=== PATIENT | male | born 1970 | race African-American/Black ===

== ENCOUNTER 2024-09-22 14:09 | Inpatient (IN) | payer OTHER ==
[2024-09-22] MEDS ORDERED: Morphine 4 MG/ML VIAL ONE (14:58)
[2024-09-22 15:48] LABS: #Basophils 0.04 10x3/uL (0.0-0.2); %Basophils 0.6 % (0.0-1.0); %Eosinophils 3.5 % (0.0-10.0); %Lymphocytes 28.8 % (21.0-51.0); %Monocytes 9.6 % (0.0-10.0); %Neutrophils 57.2 % (42.0-75.0); Hematocrit 48.9 % (42.0-52.0); Hemoglobin 16.2 g/dL (14.0-18.0); Mean Corpuscular HGB CONC 33.1 g/dL (32.0-36.0); Mean Corpuscular Volume 90.6 fL (78.0-98.0); Mean Platelet Volume 9.8 fL (7.4-10.4); Platelet Count 421 10x3/uL (130-400); RBC Distribution Width 13.6 % (11.5-14.5)
[2024-09-22] MEDS ORDERED: Ondansetron PF 4 MG/2 ML Vial ONE (16:03)
[2024-09-22 16:10] LABS: Troponin I Less than 0.010 ng/mL (< 0.028)
[2024-09-22 16:19] LABS: ALT (SGPT) 37 U/L (8-55); AST (SGOT) 39 U/L (5-34); Albumin 3.6 g/dL (3.5-5.0); Alkaline Phosphatase 60 U/L (40-110); Anion Gap 16 mmol/L (10-20); BUN (Urea Nitrogen) 48 mg/dL (8.4-25.7); Bilirubin, Total 0.6 mg/dL (0.2-1.2); CK (CPK) 310 U/L (30-200); Calc. Creatinine Clearance 0 mL/min (70-130); Calcium 10.7 mg/dL (7.8-10.44); Carbon Dioxide 32 mmol/L (22-29); Chloride 96 mmol/L (98-107); Estimated GFR 47; Globulin 5.8 g/dL (2.4-3.5); Glucose 109 mg/dL (70-105); Lipase 34 U/L (8-78); Magnesium 2.9 mg/dL (1.6-2.6); Protein, Total 9.4 g/dL (6.0-8.3); Sodium 141 mmol/L (136-145)
[2024-09-22] MEDS ORDERED: Ondansetron PF 4 MG/2 ML Vial IVP PRN (20:15)
[2024-09-22] MEDS ORDERED: Ondansetron ODT 4 MG TAB SL PRN (20:15)
[2024-09-22] MEDS ORDERED: Dextrose 5% in Water 1,000 ML IV PRN (20:49)
[2024-09-22] MEDS ORDERED: Glucagon 1 MG/ML KIT IM PRN (20:49)
[2024-09-22] MEDS ORDERED: Insulin Regular, Human 100 UNIT/ML 10 ML VIAL SC PRN (20:49)
[2024-09-22] MEDS ORDERED: Dextrose 50% Abboject 50 ML SYRINGE SLOW IVP PRN (20:49)
[2024-09-22 22:51] VITALS: BMI 45.1
[2024-09-22] MEDS ORDERED: Albuterol 200 PUFF INH INH PRN (22:51)
[2024-09-23] MEDS: Acetaminophen 325 MG TAB PO PRN (00:21)
[2024-09-23] MEDS: Colchicine 0.6 MG TAB PO SCH ×3 (00:21→11:35)
[2024-09-23] MEDS: Mometasone 200 MCG/Formoterol 5 MCG 120 PUFF INHALER INH SCH (07:35)
[2024-09-23] MEDS: Losartan 25 MG TAB PO SCH (09:13)
[2024-09-23] MEDS: predniSONE 20 MG TAB PO SCH (09:14)
[2024-09-23] MEDS: Amlodipine 10 MG TAB PO SCH (09:14)
[2024-09-23] MEDS: Hydrochlorothiazide 25 MG TAB PO SCH (09:14)
[2024-09-23] MEDS: hydrALAZINE 25 MG TAB PO SCH (09:14)
[2024-09-23] MEDS: Nortriptyline HCl 25 MG CAP PO SCH (09:14)
[2024-09-23] MEDS: DULoxetine 30 MG CAP PO SCH (09:14)
[2024-09-23] MEDS: Gabapentin 400 MG CAP PO SCH ×2 (09:15→17:26)
[2024-09-23] MEDS: metFORMIN 500 MG TAB PO SCH (09:15)
[2024-09-23] MEDS: Empagliflozin 10 MG TAB PO SCH (09:15)
[2024-09-23] MEDS: Atorvastatin Calcium 40 MG TAB PO SCH (09:16)
[2024-09-23] MEDS: Carvedilol 25 MG TAB PO SCH (09:16)
[2024-09-23] MEDS: Enoxaparin 40 MG (0.4 mL) SYRINGE SC SCH (09:16)
[2024-09-23] MEDS: Insulin Lispro 100 UNIT/ML 10 ML VIAL SC SCH (09:16)
[2024-09-23] MEDS: Potassium Chloride 20 MEQ TAB PO SCH (11:35)
[2024-09-23] MEDS: Furosemide 40 MG (4 mL) VIAL SLOW IVP SCH (13:31)
[2024-09-23 14:53] VITALS: BMI 45.1
[2024-09-23] MEDS: Insulin Regular, Human 100 UNIT/ML 10 ML VIAL SC PRN (17:50)
[2024-09-23] MEDS: DULoxetine 60 MG CAP PO SCH (21:56)
[2024-09-23] MEDS: Insulin Glargine 30 UNITS/0.3 ML VIAL SC SCH (21:56)
[2024-09-24 08:10] LABS: #Basophils 0.04 10x3/uL (0.0-0.2); %Basophils 0.4 % (0.0-1.0); %Lymphocytes 22.7 % (21.0-51.0); %Monocytes 8.3 % (0.0-10.0); %Neutrophils 66.9 % (42.0-75.0); Hematocrit 43.7 % (42.0-52.0); Hemoglobin 14.7 g/dL (14.0-18.0); Mean Corpuscular HGB CONC 33.6 g/dL (32.0-36.0); Mean Corpuscular Hemoglobin 30.2 pg (27.0-31.0); Mean Corpuscular Volume 89.7 fL (78.0-98.0); Mean Platelet Volume 9.7 fL (7.4-10.4); Platelet Count 457 10x3/uL (130-400); RBC Distribution Width 13.6 % (11.5-14.5); Red Blood Cell (RBC) Count 4.87 mill/uL (4.70-6.10)
[2024-09-24 08:28] LABS: ALT (SGPT) 30 U/L (8-55); AST (SGOT) 24 U/L (5-34); Albumin 3.3 g/dL (3.5-5.0); Alkaline Phosphatase 49 U/L (40-110); Anion Gap 17 mmol/L (10-20); BUN (Urea Nitrogen) 58 mg/dL (8.4-25.7); Bilirubin, Total 0.3 mg/dL (0.2-1.2); Calc. Creatinine Clearance 74 mL/min (70-130); Calcium 9.6 mg/dL (7.8-10.44); Carbon Dioxide 25 mmol/L (22-29); Chloride 100 mmol/L (98-107); Estimated GFR 34; Globulin 4.8 g/dL (2.4-3.5); Glucose 129 mg/dL (70-105); Magnesium 2.6 mg/dL (1.6-2.6); Potassium 3.4 mmol/L (3.5-5.1); Protein, Total 8.1 g/dL (6.0-8.3); Sodium 139 mmol/L (136-145)
[2024-09-24] MEDS: Lactated Ringer's 500 ML IV SCH (08:57)
[2024-09-24] MEDS: Potassium Chloride 20 MEQ TAB PO SCH (09:07)
[2024-09-24] MEDS: Enoxaparin 40 MG (0.4 mL) SYRINGE SC SCH (09:07)
[2024-09-24] MEDS: Lidocaine 4% Patch TD SCH (09:08)
[2024-09-24] MEDS: Nortriptyline HCl 25 MG CAP PO SCH (09:22)
[2024-09-24] MEDS: Transdermal Patch Removal TOP SCH (22:25)
[2024-09-25 05:39] LABS: #Basophils 0.03 10x3/uL (0.0-0.2); %Basophils 0.4 % (0.0-1.0); %Eosinophils 2.2 % (0.0-10.0); %Lymphocytes 37.6 % (21.0-51.0); %Monocytes 9.5 % (0.0-10.0); %Neutrophils 50.2 % (42.0-75.0); Hematocrit 40.8 % (42.0-52.0); Hemoglobin 13.5 g/dL (14.0-18.0); Mean Corpuscular HGB CONC 33.1 g/dL (32.0-36.0); Mean Corpuscular Hemoglobin 30.3 pg (27.0-31.0); Mean Corpuscular Volume 91.7 fL (78.0-98.0); Mean Platelet Volume 9.7 fL (7.4-10.4); Platelet Count 432 10x3/uL (130-400); RBC Distribution Width 13.6 % (11.5-14.5); Red Blood Cell (RBC) Count 4.45 mill/uL (4.70-6.10)
[2024-09-25 06:24] LABS: ALT (SGPT) 39 U/L (8-55); AST (SGOT) 35 U/L (5-34); Albumin 3.1 g/dL (3.5-5.0); Alkaline Phosphatase 48 U/L (40-110); Anion Gap 18 mmol/L (10-20); BUN (Urea Nitrogen) 61 mg/dL (8.4-25.7); Bilirubin, Total 0.3 mg/dL (0.2-1.2); Calc. Creatinine Clearance 71 mL/min (70-130); Calcium 9.5 mg/dL (7.8-10.44); Carbon Dioxide 24 mmol/L (22-29); Chloride 101 mmol/L (98-107); Estimated GFR 33; Globulin 4.3 g/dL (2.4-3.5); Glucose 97 mg/dL (70-105); Magnesium 2.5 mg/dL (1.6-2.6); Potassium 3.6 mmol/L (3.5-5.1); Protein, Total 7.4 g/dL (6.0-8.3); Sodium 139 mmol/L (136-145)
[2024-09-25] MEDS: Lactated Ringer's 1,000 ML IV SCH (10:55)
[2024-09-25 11:16] LABS: Creatinine, Urine 174.35 mg/dL (63-166)
[2024-09-25 16:07] LABS: Anion Gap 17 mmol/L (10-20); BUN (Urea Nitrogen) 57 mg/dL (8.4-25.7); Calc. Creatinine Clearance 96 mL/min (70-130); Calcium 9.2 mg/dL (7.8-10.44); Carbon Dioxide 24 mmol/L (22-29); Chloride 102 mmol/L (98-107); Estimated GFR 47; Glucose 96 mg/dL (70-105); Potassium 3.6 mmol/L (3.5-5.1); Sodium 139 mmol/L (136-145)
[2024-09-25 18:34] VITALS: BP 111/77; TEMP 98.3
[2024-09-25] MEDS ORDERED: Insulin Glargine 30 UNITS/0.3 ML VIAL SC SCH ×2 (21:00)
== END 2024-09-25 18:30 | disposition home or self-care (01) | DRG 556 ==
LOC: ERS 14:09 → MSONC 19:59 → OBSVTOIN 09-24 14:17
PROVIDERS: ADMIT Student in an Organized Health Care Education/Training Program; ATTEND Student in an Organized Health Care Education/Training Program
DX: M25.562 Pain in left knee (principal); I69.354 Hemiplegia and hemiparesis following cerebral infarction affecting left non-dominant side; N17.9 Acute kidney failure, unspecified; M10.9 Gout, unspecified; I12.9 Hypertensive chronic kidney disease with stage 1 through stage 4 chronic kidney disease, or unspecified chronic kidney disease; E11.22 Type 2 diabetes mellitus with diabetic chronic kidney disease; E78.5 Hyperlipidemia, unspecified; N18.31 Chronic kidney disease, stage 3a; Z79.899 Other long term (current) drug therapy; Z79.4 Long term (current) use of insulin; Z79.84 Long term (current) use of oral hypoglycemic drugs; R29.6 Repeated falls; F17.290 Nicotine dependence, other tobacco product, uncomplicated; G89.29 Other chronic pain; M25.561 Pain in right knee
CPT/HCPCS: 36415; 36416; 70450; 71260; 72125; 74177; 80053; 82550; 82570; 83690; 83735; 84484; 84540; 84550; 85025; 86141; 93005; 96374; J1650; J1815; J1940; J2272; J2405; J7120; J7512